=== PATIENT | male | born 1995 | race African-American/Black ===

== ENCOUNTER 2017-06-26 20:24 | Emergency (ER) | payer SELFPAY ==
[~2017-06-26] VITALS: Ht 180.3 cm; Wt 72.6 kg
[2017-06-26 20:29] VITALS: BP 134/80
--- NOTE | 2017-06-26 21:14 | PHYS DOC ---
Past History Past Medical History: No Pertinent History Past Surgical History: No Surgical History Alcohol Use: None Drug Use: None Adult General Chief Complaint Chief Complaint: PAIN ON URINATION HPI HPI Patient is a 22-year-old gentleman who presents to the ER today secondary to dysuria with some small amount of penile discharge is noted for several days. Patient reports he is sexual active with multiple partners. Patient thinks he is had approximately 15-20 sexual partners within the last 6 months. Patient reports he's never had an STD for similar symptoms. Patient has any testicular pain. Patient denies any weight loss. Patient has any fevers shakes chills cough cold runny nose nausea vomiting or diarrhea. Review of systems: Constitutional: Denies fever or chills Eyes: Denies change in visual acuity, redness, or eye pain HENT: Denies nasal congestion or sore throat All other review systems are negative except as documented in the history of present illness portion. Physical exam: Constitutional: Well developed, well nourished, no acute distress, non-toxic appearance. HENT: Normocephalic, atraumatic, bilateral external ears normal, nose normal. Eyes: EOMI, conjunctiva normal, no discharge. Neck: Normal range of motion, no tenderness, supple, no stridor. Cardiovascular:Heart rate regular rhythm Lungs & Thorax: Bilateral breath sounds clear to auscultation no respiratory distress Abdomen: Bowel sounds normal, soft, no tenderness, no masses, no pulsatile masses. Skin: Warm, dry, no erythema, no rash. Back: No tenderness, no CVA tenderness. Extremities: No tenderness, no cyanosis, no clubbing, ROM intact, no edema. Neurologic: Alert and oriented X 3, normal motor function, normal sensory function, no focal deficits noted. Psychologic: Affect normal, judgement normal, mood normal. Patient's ER physical exam is significant for small amount of turbid urine/ discharge. No testicular pain. No lymphadenopathy. No rashes or lesions on his penis. Assessment and plan This is a 22-year-old gentleman who presents here today with signs and symptoms consistent with urethritis. Given the patient's lifestyle tightly likely that this might be GC or chlamydia. Patient does have a turbid appearing discharge. Patient be given Rocephin 250 IM as well as Zithromax 1 g. Patient has been instructed regarding her risk of high risk sexual activity and need to follow- up with health department for HIV syphilis and herpes testing. Patient was given counseling regarding safe sex. Patient be discharged home with instructions to notify all sexual partners they will require treatment. Current Medications Current Medications Current Medications Medications (Trade) Dose Ordered Sig/Radha Start Time Stop Time Status Last Admin Dose Admin Azithromycin (Zithromax) 1,000 mg 1X ONCE 06/26/17 21:15 06/26/17 21:16 Ceftriaxone Sodium (Rocephin Im) 250 mg 1X ONCE 06/26/17 21:15 06/26/17 21:16 Allergies Allergies Allergies Coded Allergies Type Severity Reaction Last Updated Verified No Known Drug Allergies 06/26/17 No Current Patient Data Vital Signs Vital Signs Date Time Temp Pulse Resp B/P (MAP) Pulse Ox O2 Delivery O2 Flow Rate FiO2 06/26/17 20:29 98.2 84 18 99 Room Air EKG EKG [] Radiology/Procedures Radiology/Procedures [] Course & Med Decision Making Course & Med Decision Making Pertinent Labs and Imaging studies reviewed. (See chart for details) [] Dragon Disclaimer Dragon Disclaimer This electronic medical record was generated, in whole or in part, using a voice recognition dictation system. Departure Departure: Impression: Primary Impression: Urethritis Additional Impression: STD (male) Disposition: 01 HOME, SELF-CARE Condition: IMPROVED Referrals: PCP,UNKNOWN (PCP) Patient Instructions: Safe Sex, Sexually Transmitted Disease Additional Instructions: Please follow up with the health department to assist you with HIV/syphilis testing. Please notify all sexual partners that you have been in contact with regarding the need for them to get treated. Problem Qualifiers JESUS CORREA MD Jun 26, 2017 21:14
[2017-06-26] MEDS ORDERED: cefTRIAXone IM 250 MG VIAL IM ONE (21:15)
[2017-06-26] MEDS ORDERED: AZITHROMYCIN 250 MG TABLET. PO ONE (21:15)
[2017-06-26 21:41] LABS: BILIRUBIN,URINE NEG (NEG); CLARITY,URINE HAZY; COLOR,URINE YELLOW; GLUCOSE,URINE NEG (NEG); NITRITE,URINE NEG (NEG); RBC,URINE 20-40 /HPF (0-2); UROBILINOGEN,URINE 1 mg/dL (0.2 mg/dL)
[2017-06-26 21:42] LABS: BACTERIA,URINE 0 /HPF (0-FEW)
== END 2017-06-26 21:55 | disposition home or self-care (01) ==
LOC: ER 20:24
DX: N34.2 Other urethritis (principal); A64 Unspecified sexually transmitted disease
CPT/HCPCS: 81001; 96372; 99283; J0456; J0696